=== PATIENT | male | born 1980 | race Caucasian/White ===

== ENCOUNTER → 2018-07-04 | Outpatient (REF) ==
--- NOTE | 2018-07-04 14:43 | REP ---
LUMBAR SPINE, FIVE VIEWS: HISTORY: Back pain. There is no acute fracture or subluxation. The L4-5 intervertebral disc is decreased in height consistent with disc degeneration. An osteophyte is present on L2. There is narrowing of the L5-S1 facet joints. There is partial sacralization of the L5 vertebral body. IMPRESSION: Degenerative change as described above. Electronically Signed by Jean-Pierre Abraham MD 07/04/2018 02:52 P
--- NOTE | 2018-07-04 14:53 | REP ---
RIGHT FOOT, FOUR VIEWS: HISTORY: Pain. There is no acute fracture or dislocation. The joint spaces are normal in appearance. IMPRESSION: There is no acute fracture or dislocation. Electronically Signed by Jean-Pierre Abraham MD 07/04/2018 03:05 P
--- NOTE | 2018-07-04 14:53 | REP ---
CERVICAL SPINE, EIGHT VIEWS: HISTORY: Neck pain. There is no acute fracture or subluxation. There is an old compression fracture of the C7 vertebral body with minimal height loss. The intervertebral discs are normal in height. Osteophytes are present on C6 and C7. The neural foramina are patent. IMPRESSION: Degenerative change, as described above. Electronically Signed by Jean-Pierre Abraham MD 07/04/2018 03:05 P
== END ==
LOC: M RAD 12:05
PROVIDERS: ATTEND Family Medicine
DX: M54.5 Low back pain (principal); M54.2 Cervicalgia

== ENCOUNTER → 2019-02-02 | Outpatient (CLI) | payer OTHER ==
--- NOTE | 2019-02-02 17:12 | REP ---
Scrotal sonography: History: Palpable abnormality at right inferior scrotum. Findings: High-resolution bilateral scrotal sonography is performed. There is no evidence of intratesticular mass on either side. Testicular parenchyma is homogeneous. Right testis measures 3.8 x 1.9 x 2.5 cm. Left testicular dimensions are 3.4 x 1.6 x 2.6 cm. Epididymi are unremarkable and symmetric. Scanning at the area of the palpable abnormality as directed by the patient shows normal epididymal tail. Doppler flow is normal to both testes. Resistive indices are 0.61 bilaterally by Doppler. Impression: Normal bilateral scrotal sonography. Electronically Signed by Quang Melissa MD 02/02/2019 06:10 P
== END ==
LOC: M RAD 12:31
PROVIDERS: ATTEND Physician Assistant Medical
DX: N50.9 Disorder of male genital organs, unspecified (principal)

== ENCOUNTER → 2020-09-15 | Outpatient (CLI) | payer OTHER ==
--- NOTE | 2020-09-15 14:18 | REP ---
INDICATION: RIGHT SHOULDER PAIN AND HISTORY CARPAL TUNNEL COMPARISON: None. TECHNIQUE: Four views right shoulder. FINDINGS: There is no evidence of acute fracture, dislocation, or intrinsic bone disease.Joint spaces are unremarkable. IMPRESSION: Negative right shoulder series. <Electronically signed by Otto Beck > 09/15/20 0421
--- NOTE | 2020-09-15 14:20 | REP ---
INDICATION: RIGHT SHOULDER PAIN AND HISTORY CARPAL TUNNEL COMPARISON: None. TECHNIQUE: Three views right hand. FINDINGS: There is no evidence of acute fracture, dislocation, or intrinsic bone disease.The joint spaces are unremarkable. IMPRESSION: Negative right hand series. <Electronically signed by Otto Beck > 09/15/20 [id number]
== END ==
LOC: M SOG 13:30
PROVIDERS: ATTEND Orthopaedic Surgery Sports Medicine
DX: M75.41 Impingement syndrome of right shoulder (principal); G56.01 Carpal tunnel syndrome, right upper limb

== ENCOUNTER → 2020-09-30 | Outpatient (CLI) | payer OTHER | LOC: M LABSMTC 11:58 | PROVIDERS: ATTEND Anesthesiology | DX: Z01.812 Encounter for preprocedural laboratory examination (principal); Z20.828 Contact with and (suspected) exposure to other viral communicable diseases ==

== ENCOUNTER 2020-10-05 09:39 | Day surgery (SDC) | payer OTHER ==
[~2020-10-05] VITALS: Ht 165.1 cm; Wt 69.9 kg
[~2020-10-05 09:39] MED LIST: LR 1,000 ML IV ONE; ceFAZolin SOD 2 GM in IV 1 EA IV ONE
[2020-10-05] MEDS ORDERED: BUPIVACAINE/EPIN 0.25% 30 ML VIAL As Ordered ONE (10:13)
[2020-10-05] MEDS ORDERED: MIDAZOLAM INJ 2MG/2ML VIAL (J2250 PER 1MG) As Ordered ONE (11:57)
[2020-10-05] MEDS ORDERED: propofoL 200 MG/20 ML VIAL As Ordered ONE (11:57)
[2020-10-05] MEDS ORDERED: KETAMINE HCL 200 MG/20 ML VIAL As Ordered ONE (11:57)
[2020-10-05] MEDS ORDERED: LIDOCAINE 2% 100MG/5ML SDV (FOR ANES.) As Ordered ONE (11:57)
[2020-10-05] MEDS ORDERED: ACETAMINOPHEN 1000MG 100ML IV BTL (OFIRMEV) (J0131 PER 10MG) As Ordered ONE (13:01)
--- NOTE | 2020-10-05 13:19 | ROOPDOC ---
[facility] Report Of Operation Report of Operation DATE OF PROCEDURE: 10/05/20 PREPROCEDURE DIAGNOSES: Right carpal tunnel syndrome. POSTPROCEDURE DIAGNOSES: Right carpal tunnel syndrome. PROCEDURE: Right open carpal tunnel release. SURGEON: Dr. Antonio Kulkarni MD CUT OFF MAN: ANESTHESIA: Dr. Machuca local/mac. ESTIMATED BLOOD LOSS: Approximately 5 mL. COMPLICATIONS: None. REMARKS: None. PROCEDURE NOTE: This 40-year-old man who has signs and symptoms consistent with moderate carpal tunnel syndrome of the right upper extremity. I saw him in preoperative holding reiterated the pros and cons risks and benefits of nonsurgical versus surgical treatment. He wished to go ahead and marked the right upper extremity and the patient had no further questions. DESCRIPTION OF PROCEDURE: Patient was brought to the operating theater. They were placed supine on the operating room table. Hand table was used. Limb was prepped and draped in the usual sterile fashion. I used chlorhexidine-based prep solution allowing over 3 minutes drying time prior to draping. 2 g of IV Ancef was given prior to starting the case. Local/MAC anesthesia was used. Preoperative timeout was performed confirming the site the patient and the surgery. I began by infiltrating 6 mL of percent Marcaine with epinephrine in and around the proposed incision site. This was on the palmar surface just distal to the wrist crease longitudinally in line with the fourth digit. The incision length was approximately 2 cm. I allowed the local anesthetic time to work. I carried the dissection down through skin and subcutaneous tissue to meticulous hemostasis. I incised the palmar fascia in line with the skin incision. I incised the transverse carpal ligament in line with the skin incision fully proximally and distally. I excised the small leaflet from the radial side of the transverse carpal ligament. Nerve appeared in continuity throughout the case. I thoroughly irrigated the wound with normal saline. I closed the subcutaneous tissues with 2-0 Vicryl sutures and the skin with 3-0 Ethilon in a horizontal mattress fashion. Wound cleaned with wet and dry dressing followed by application of non stick dressing, 4 x 8 gauze and overwrapped with Cassandra type dressing. Patient was woken up from their sedation and transferred off the operating room table and taken to postanesthetic care unit in stable condition. All sponge, needle, instrument counts were correct. No complications. The patient is to start immediate hand wrist and elbow exercises but avoid heavy lifting and gripping-type activities for the first 6 weeks. They will be dischar ged home according to day surgery criteria. They can change the dressing postoperative day 1 and avoid showering over top or getting it wet for the first 14 days. Follow-up in the office in 2 weeks' time. Postoperative wound instructions were given. It was recommended to keep the wound clean and dry. Dressing changes as needed. It was reinforced with the patient that they should call us or be seen immediately for redness, drainage, or fever. Risk factors for harms from taking opioid medications discussed and assessed including but not limited to personal or family history of substance use disorder, anxiety or depression, , age 65 or older, COPD or other underlying respiratory conditions, and renal or hepatic insufficiency. Discussed with patient concerns and determined any harms they may experience or be currently experiencing such as nausea or constipation, feeling sedated or confused, breathing interruptions during sleep, or taking or craving more opioids than prescribed or difficulty controlling use (addiction). Discussed early warning signs of overdose including confusion, sedation, slurred speech, abnormal gait. . ANTONIO KULKARNI MD Oct 05, 2020 13:19
[2020-10-05] MEDS ORDERED: oxyCODONE 5MG TAB PO PRN (13:50)
[2020-10-05] MEDS ORDERED: LR 1,000 ML IV SCH (13:50)
[2020-10-05] MEDS ORDERED: fentaNYL 100 MCG/2 ML INJECTION (J3010) IV PRN (13:50)
[2020-10-05] MEDS ORDERED: HYDROMORPHONE HCL 0.5 MG/ 0.5 ML SYRINGE (J1170 PER 1) IV PRN (13:50)
[2020-10-05] MEDS ORDERED: ONDANSETRON 4MG/2ML VIAL IV PRN (13:50)
[2020-10-05 14:00] VITALS: BP 155/84
== END 2020-10-05 14:10 | disposition home or self-care (01) ==
LOC: M SDC 09:39
PROVIDERS: ATTEND Orthopaedic Surgery Sports Medicine
DX: G56.01 Carpal tunnel syndrome, right upper limb (principal)
CPT/HCPCS: 64721; J0131; J0690; J2250

== ENCOUNTER → 2020-10-20 | Outpatient (CLI) | payer OTHER | LOC: CANPRECLI → M SOG 11:00 | PROVIDERS: ATTEND Orthopaedic Surgery Sports Medicine | DX: Z53.9 Procedure and treatment not carried out, unspecified reason (principal) ==